=== PATIENT | female | born 1975 | race Caucasian/White ===

== ENCOUNTER 2025-07-18 08:52 | Emergency (ER) | payer OTHER, SELFPAY ==
[2025-07-18 09:08] VITALS: BP 111/66; PULSE 65; RESP 20; TEMP 36.4; O2SAT 100
[2025-07-18 09:19] LABS: EDSTREPNEGPOS1 Negative (Negative)
[2025-07-18 09:34] LABS: EDCOVIDSCREEN Negative (Negative); EDINFLUASCREEN Negative (Negative); EDINFLUBSCREEN Negative (Negative)
--- OUTSIDE RECORDS SUMMARY | 2025-07-18 09:35 | XMS_ITS | Patient Health Record ---
Author Organization [facility] Address [address] [place], [place] [id number] Care Team Providers Care Cabana Attendant Name Role Phone Anamika Cruz Primary Care Provider [phone] Allergies Allergen (clinical drug ingredient) Drug/Non Drug Allergy documented on EMR Reaction Allergy Type Onset Date Status Penicillin Unknown Drug Allergy Active Reason For Referral No Information Medications Medication SIG (Take, Route, Frequency, Duration) Notes Start Date End Date Status Topiramate 100 MG Tablet TAKE 2 TABLETS BY MOUTH EVERY DAY Oral; Duration: 30 08/15/2015 Active Sertraline HCl 100 MG Tablet TAKE 1&1/2 TABLET BY MOUTH EVERY DAY; Duration: 90 Active Pantoprazole Sodium 40 MG Tablet Delayed Release 1 tablet Orally Once a day for abd pain; Duration: 30 day(s) 08/02/2015 Active Ondansetron HCl 4 MG Tablet 1 tablet Orally every 4 hours as needed for nausea; Duration: 7 days 08/02/2015 Active Diflucan 150 MG Tablet 1 tablet Orally once; Duration: 1 dose 07/09/2015 Not-Taking/MI N Cefdinir 300 MG Capsule 1 capsule Orally every 12 hrs Not-Taking/MI N Nasonex 50 MCG/ACT Suspension 2 sprays in each nostril Nasally Once a day; Duration: 90 days Active Tretinoin 0.05 % Cream 1 application to affected area in the evening to face Externally Once a day Active Singulair 10 MG Tablet TAKE 1 TABLET BY MOUTH EVERY DAY IN THE EVENING; Duration: 90 Active Montelukast Sodium 10 MG Tablet take 1 tablet by mouth daily in the evening Orally DAILY; Duration: 90 days Active SUMAtriptan Succinate 100 MG Tablet 1 tablet as needed one time Orally Once a day; Duration: 90 days pt needs refill 12/22/2014 Active Social History Social History Drugs/Alcohol: Social Info Question Answer Notes Drugs Have you used drugs other than those for medical reasons in the past 12 months? No Problems Problem Type SNOMED Code ICD Code Onset Dates Problem Status W/U Status Risk Notes Problem Allergic rhinitis (50510138) Allergic rhinitis (J30.9) Active confirmed Problem Acne (46074848) Acne (L70.9) Active confirmed Problem migraine (disorder) (79677113) Migraines (G43.909) Active confirmed Plan Of Treatment No Information Insurance Providers Payer Name Payer Address Payer Phone Subscriber Number Group Number Insured Name Patient Relationship to Insured Coverage Start Date Coverage End Date [facility] [address] [place] [address] [id number] Bertha Hendrickson Self - patient is the insured 5 Medical (General) History Medical History History ICD Code Migraines G43.909 Acne L70.9 Allergic rhinitis J30.9
--- OUTSIDE RECORDS SUMMARY | 2025-07-18 09:35 | XMS_ITS | Patient Health Record ---
Author Organization [facility] Address [address] [place], [place] [address] Care Team Providers Care Casting Machine Operator Automatic Name Role Phone Eliceo Jimenes Unavailable [phone] Allergies Allergen (clinical drug ingredient) Drug/Non Drug Allergy documented on EMR Reaction Allergy Type Onset Date Status Penicillin Unknown Drug Allergy Active Reason For Referral No Information Medications Medication SIG (Take, Route, Frequency, Duration) Notes Start Date End Date Status Immitrex Active Topamax Active Plan Of Treatment No Information Insurance Providers Payer Name Payer Address Payer Phone Subscriber Number Group Number Insured Name Patient Relationship to Insured Coverage Start Date Coverage End Date [facility] [address] [place] [address] [id number] Monty Hendrickson Spouse - patient is the spouse of the insured Medical (General) History Medical History History ICD Code migraines Surgical History Surgery Date(Month/Year) sinus surgery
--- OUTSIDE RECORDS SUMMARY | 2025-07-18 09:35 | XMS_ITS | Patient Health Record ---
Author Organization [facility] Address [address] [facility] [place] [address] Care Team Providers Care Protective Services Social Worker Name Role Phone SPIKE LYMAN Primary Care Provider Unavailsandee e Carol Adams Unavailable [phone] JUAN C MILLER Unavailable Unavailable Allergies Allergen (clinical drug ingredient) Drug/Non Drug Allergy documented on EMR Reaction Allergy Type Onset Date Status amitriptyline Amitriptyline HCl suicidal thoughts Drug Allergy Active Penicillin Unknown Drug Allergy Active Reason For Referral No Information Medications Medication SIG (Take, Route, Frequency, Duration) Notes Start Date End Date Status Phenergan 25 mg tablet 1 tablet Oral 8 h ours as needed for nausea & PACHECO; Duration: 10 days Active Naproxen 500 mg Tablet 1 tablet as neede d 2 days prior to menstrual cycle Orally every 12 hrs; Duration: 15 days Active Ativan 1 MG Tablet as directed Orally T apurva 1 tablet 1 hr prior to MRI, may repeat upon arrival to scan; Duration: 1 dose(s) 02/13/2017 Active Topiramate 100 MG Tablet 1-2 TABS TWICE DAILY; Duration: 30 Active tiZANidine HCl 4 MG Tablet 1 tablet Oral ly prn with headache Active Zoloft 100 mg Tablet 1 tablet Orally Once a day Active Vitamin D 2000 UNIT Tablet 1 tablet Orally Once a day Active Gabapentin 100 mg Capsule 1-2 capsules O rally tid; Duration: 30 Active Medrol 4 mg Tablet as directed Orally a s directed; Duration: 6 Active Fish Oil 1200 MG Capsule 2 capsules Oral ly Once a day Active Magnesium 250 MG Tablet 1 tablet with fo od Orally Two times a day Active Imitrex 100 MG Tablet 1 tablet as needed Orally Twice a day; Duration: 30 days Active Medrol 4 mg Tablet Therapy Pack as directed Orally daily; Duration: 1 dose(s) 06/18/2017 Active Topamax 100 MG Tablet 1 tablet Orally Tw ice a day Active Social History Tobacco Use: Social History Observation Description Date Details (start date - stop date) Never Smoker NA - NA Social History Social History Social Info Question Answer Notes Smoking History Are you a: nonsmoker Additional Findings: Tobacco Non-User Current no n-smoker Drug Abuse History Have you ever been addicted to drug s? No Alcohol usage Did you have a drink containing alcohol in the past year? No Points 0 Interpretation Negative Additional Details Category Social Info Options Details Social History Work status no Daily caffeine intake Yes, 1-2 c ups per day Marital status Section Notes: Patient is RT handed. Patient is RT handed. Patient is RT handed. Patient is RT handed. Patient is RT handed. Patient is RT handed. Patient is RT handed. Patient is RT handed. Patient is RT handed. Patient is RT handed. Patient is RT handed. Patient is RT handed. Patient is RT handed. Patient is RT handed. Problems Problem Type SNOMED Code ICD Code Onset Dates Problem Status W/U Status Risk Notes Problem Chronic intractable migraine without aura (68378824874601 5) Chronic migraine without aura, intractable, without status migrainosus (G43.719) Active confirmed Problem Refractory migraine without aura (598478751) Intractable migraine without aura and without status migrainosus (G43.019) Active confirmed Problem Status migrainosus (379659459) Status migrainosus (G43.901) Active confirmed Problem Attention deficit disorder (30509641) ADD (attention deficit disorder) (F90.0) Active confirmed Problem Seizure (77575574) Seizures (R56.9) Active confirmed Problem Spasm (38184109) Spasm of muscle (M62.838) Active confirmed Problem Mood disorder (67798659) Mood disorder (F39) Active confirmed Problem Cervical spondylosis without myelopathy (006532038) Cervical spondylosis with radiculopathy (M47.22) Active confirmed Problem Migraine (18294744) Migraine (G43.909) Active confirmed Plan Of Treatment Pending Test Test Name Order Date MRI C-Spine WO Contrast 09/29/2016 Trigger Point Injection Cervical 016 Occipital Nerve Injection 09/29/2016 48 hour Ambulatory EEG 12/12/2015 Insurance Providers Payer Name Payer Address Payer Phone Subscriber Number Group Number Insured Name Patient Relationship to Insured Coverage Start Date Coverage End Date [facility] [address] [place] [address] [id number] PATEL CISNEROS Self - patient is the insured Medical (General) History Medical History History ICD Code Headaches Seizure Depression ADD Surgical History Surgery Date(Month/Year) [place] tooth removal Hospitalization History Reason Date(Month/Year[facility] Den[facility] ER or hospitalization since the l ast visit
--- OUTSIDE RECORDS SUMMARY | 2025-07-18 09:36 | XMS_ITS | Patient Health Record ---
Author Organization [facility] Physician Enedelia es Billing Info Address [address] [place] [address] Support Name Relationship Address Phone Bertha Pickett Guarantor Unknown Reason For Referral No Information Plan Of Treatment No Information Insurance Providers Payer Name Payer Address Payer Phone Subscriber Number Group Number Insured Name Patient Relationship to Insured Coverage Start Date Coverage End Date [employer] [address] [place], [place] [id number] [phone] [id number] Monty Pickett Spouse - patient is the spouse of the insured 4 4
--- OUTSIDE RECORDS SUMMARY | 2025-07-18 09:36 | XMS_ITS | Patient Health Record ---
Author Organization [facility] Billing Info Address [address] [place] [address] [place] [address] Care Team Providers Care Intellectual Property Counsel Name Role Phone REFUGIO LEXIE Primary Care Provider [phone] TASH, PATEL Unavailable [phone] Allergies Allergen (clinical drug ingredient) Drug/Non Drug Allergy documented on EMR Reaction Allergy Type Onset Date Status Penicillin Unknown Drug Allergy Active Reason For Referral No Information Medications Medication SIG (Take, Route, Frequency, Duration) Notes Start Date End Date Status Sumatriptan Succinate 100 MG TAKE 1 TAB AT LEAST 2 HOURS BETWEEN DOSES NEEDED FOR MIGRAINE. REPEAT IN 2 HOURS IF NO RELIEF 5 for 30 Active Celecoxib 200 MG 1 capsule with food Orally Once a day for 30 days 07/03/2023 Active Sertraline HCl 100 MG TAKE 1 AND 1/2 TAB LETS BY MOUTH ONCE DAILY for 90 Active Topiramate 100 MG TAKE [address] [facility] TWICE A DAY for 90 Active Nurtec 75 MG 1 tablet on the tong ue and allow to dissolve Orally Daily for 30 days 07/03/2023 Active Ondansetron 4 MG 1 tablet on the tong ue and allow to dissolve Orally TID prn for 30 days 09/25/2023 Active Tizanidine HCl 2 MG 1 tablet as needed O rally Three times a day PRN muscle spasms; WARNING: sedating 07/03/2023 Active Immunizations Vaccine Route Administration Date Status Comme nts TB SKIN TEST (PPD) ID Intradermal 09/13/2018 Administered TB SKIN TEST (PPD) ID Intradermal 03/01/2021 Administered Pt was notified to return within 48-72 hours, and told to return before 11:45 AM on the third day. TB SKIN TEST (PPD) ID Intradermal 07/31/2023 Administered [facility]: 10727-040-6 1 zFLU 4V (FLUZONE QUAD), 3 YRS+, NO PRES - ALL PAYORS IM Intramuscular 06/17/2018 Administered zFLU 4V (FLUARIX QUAD), 6 MO+, NO PRES - ALL PAYORS IM Intramuscular 07/19/2021 Administered zFLU 4V (FLUARIX QUAD), 6 MO+, NO PRES - ALL PAYORS IM Intramuscular 07/30/2023 Administered [id number] zFLU 4V (FLUZONE QUAD), 6MO+ (0.5 ML), NO PRES - ALL PAYORS IM Intramuscular 06/07/2020 Administered [facility] 74253-831-3 8 Social History Tobacco Use: Social History Observation Description Date Details (start date - stop date) Never Smoker NA - NA Tobacco Status: Question Answer Notes Patient is a never smoker Problems Problem Type SNOMED Code ICD Code Onset Dates Problem Status W/U Status Risk Notes Problem 866846501 Seasonal allergies (J30.2) Active confirmed Problem 616340852 Need for tuberculosis vaccination (Z23) Active confirmed Problem Recurrent sinusitis (797542951) Recurrent sinusitis (J32.9) Active confirmed Problem 1085241 Migraine with aura and without status migrainosus, not intractable (G43.109) Active confirmed Plan Of Treatment No Information Insurance Providers Payer Name Payer Address Payer Phone Subscriber Number Group Number Insured Name Patient Relationship to Insured Coverage Start Date Coverage End Date [facility] [address] [address] [place], [place] [id number] [phone] [id number] Patel Hendrickson Self - patient is the insured 8 Medical (General) History Surgical History Surgery Date(Month/Year) wisdom teeth removed
--- OUTSIDE RECORDS SUMMARY | 2025-07-18 09:36 | XMS_ITS | Patient Health Record ---
Author Organization [facility] Address [address] [place] [address] Care Team Providers Care Electronic Installer Name Role Phone Tiana Frank Unavailable [phone] Allergies Allergen (clinical drug ingredient) Drug/Non Drug Allergy documented on EMR Reaction Allergy Type Onset Date Status penicillin V Penicillin V Potassium Unknown Drug Allergy Active Reason For Referral No Information Medications Medication SIG (Take, Route, Frequency, Duration) Notes Start Date End Date Status Topamax 100 MG 1 tablet Orally Twic e a day Active Imitrex 100 MG 1 tablet as needed O rally Twice a day Active Ciclopirox Olamine 0.77 % 1 application to affected area Externally Twice a day; Duration: 30 days 02/09/2018 Active Social History Tobacco Use: Social History Observation Description Date Details (start date - stop date) Never Smoker NA - NA Tobacco Use/Smoking Question Answer Notes Are you a nonsmoker Alcohol Screen Question Answer Notes Did you have a drink containing alcohol in the p ast year? No Points 0 Interpretation Negative Problems Problem Type SNOMED Code ICD Code Onset Dates Problem Status W/U Status Risk Notes Problem Tinea unguium (553370118) Tinea unguium (B35.1) Active confirmed Plan Of Treatment No Information Insurance Providers Payer Name Payer Address Payer Phone Subscriber Number Group Number Insured Name Patient Relationship to Insured Coverage Start Date Coverage End Date [address] [place] [address] [phone] [id number] Bertha Pickett Self - patient is the insured Medical (General) History Medical History History ICD Code depression epilepsy headaches/migraines psychiatric conditions Surgical History Surgery Date(Month/Year) wisdom tooth extraction
--- OUTSIDE RECORDS SUMMARY | 2025-07-18 09:36 | XMS_ITS | Clinical Summary ---
Author Organization [facility] Address [address] [place] [address] Care Team Providers Care Poultry Offal Icer Name Role Phone Cornelius Turcios DO Primary Care Provider [phone] Allergies Active Allergy Reactions Criticality Noted Date Comments Penicillins 07/22/2020 Medications sertraline (ZOLOFT) 50 mg tablet Take 100 mg by mouth daily. Active topiramate (TOPAMAX) 50 MG tablet Take 100 mg by mouth 2 (two) times a day. Active SUMAtriptan (IMITREX) 100 MG tablet Take 100 mg by mouth as needed for migraine. After 2 hours, if symptoms persist, may repeat dose x 1. Max 2 doses in 24 hrs. Active cefdinir (OMNICEF) 300 MG capsuleIndicati ons:Acute non-recurrent frontal sinusitis Take 1 capsule (300 mg total) by mouth 2 (two) times a day. 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
--- NOTE | 2025-07-18 09:56 | ED.GENADULT ---
HPI - General Adult General Chief complaint: Upper Respiratory Infection Stated complaint: Sore throat Source: patient Mode of arrival: ambulatory Limitations: no limitations History of Present Illness HPI narrative: Patient presents for evaluation of sick symptoms for last 2 days. Symptoms include headache, sore throat, nausea, diarrhea, generalized body aches, and cough. No shortness of breath or vomiting. No recent sick contacts to her knowledge. She took aleve for her symptoms which seemed to help. She does not smoke. Related Data Home Medications ?Medication ?Instructions ?Recorded ?Confirmed ?Last Taken ?Type estradiol 0.5 mg tablet mg 07/18/25 Unknown History sertraline 100 mg tablet mg 07/18/25 Unknown History sumatriptan succinate 100 mg tablet mg PO 07/18/25 Unknown History terbinafine HCl 250 mg tablet mg 07/18/25 Unknown History topiramate 100 mg tablet mg 07/18/25 Unknown History Allergies Allergy/AdvReac Type Severity Reaction Status Date / Time Penicillins Allergy Mild Hives Verified 07/18/25 09:10 Review of Systems Review of Systems: CONSTITUTIONAL: Denies fever, chills, or sweats. EYES: Denies visual changes, redness, or discharge. ENT: Reports sinus congestion and sore throat. CARDIOVASCULAR: Denies chest pain, palpitations, or edema. RESPIRATORY: Reports cough. Denies SOB GASTROINTESTINAL: Reports nausea and diarrhea GENITOURINARY: Denies dysuria or hematuria. SKIN: Denies rash or itching. MUSCULOSKELETAL: Reports generalized body aches NEUROLOGIC: Reports headache. Denies numbness, dizziness, or weakness. PSYCHIATRIC: Denies anxiety or depression. [facility] Past Medical History Medical History Migraine Surgical History Surgical History No pertinent past surgical history Family History Family History Mother Family history non-contributory Social History Social History Smoking status: Never smoker Substance use: never Gender identity (if verbalized by the patient): Female Spiritual care concerns: No Exam Narrative: GENERAL: Well-appearing, well-nourished, and in no acute distress. HEAD: Normocephalic, atraumatic. EYES: PERRLA and EOMI. ENT: Nares clear, no rhinorrhea or epistaxis. Mucous membranes moist. Oropharynx without tonsillar hypertrophy exudate or other lesions however there is posterior pharyngeal erythema. Bilateral TMs pearly carrion nonbulging NECK: Supple. No adenopathy or masses. No carotid bruits or JVD CHEST: Clear to auscultation. No respiratory distress. No wheezes rales or rhonchi HEART: Regular rate and rhythm. No murmur heard. Normal peripheral pulses. ABDOMEN: Soft, nontender, nondistended, normal active bowel sounds. EXTREMITIES: Normal range of motion. No edema. SKIN: Warm, dry, no rash. NEURO: No focal deficits. Alert and oriented x3. PSYCH: Normal mood and affect. Course Course Emergency Course: this is a 50-year-old female who presented for evaluation of sick symptoms. COVID, influenza, strep were all negative. Will send throat culture. Increase hydration. [id number] agents for symptom management. Her exam is consistent with acute viral syndrome. Follow-up with primary provider. Go to the ER for worsening symptoms. Patient in agreement with plan of care. Level of Care: Express Care Visit Vital Signs Vital signs: Vital Signs Temperature 36.4 C 07/18/25 09:08 Pulse Rate 65 07/18/25 09:08 Respiratory Rate 20 07/18/25 09:08 Blood Pressure 111/66 07/18/25 09:08 Pulse Oximetry 100 07/18/25 09:08 Oxygen Delivery Room Air 07/18/25 09:08 Temperature 36.4 C 07/18/25 09:08 Pulse Rate 65 07/18/25 09:08 Respiratory Rate 20 07/18/25 09:08 Blood Pressure 111/66 07/18/25 09:08 Pulse Oximetry 100 07/18/25 09:08 Oxygen Delivery Room Air 07/18/25 09:08 Medical Decision Making Vital Signs Vital Signs: Vital Signs Temperature 36.4 C 07/18/25 09:08 Pulse Rate 65 07/18/25 09:08 Respiratory Rate 20 07/18/25 09:08 Blood Pressure 111/66 07/18/25 09:08 Pulse Oximetry 100 07/18/25 09:08 Oxygen Delivery Room Air 07/18/25 09:08 Temperature 36.4 C 07/18/25 09:08 Pulse Rate 65 07/18/25 09:08 Respiratory Rate 20 07/18/25 09:08 Blood Pressure 111/66 07/18/25 09:08 Pulse Oximetry 100 07/18/25 09:08 Oxygen Delivery Room Air 07/18/25 09:08 Lab Data Labs: Lab Results 07/18/25 07/18/25 Range/Units 09:17 09:33 POC Influenza A Ag Negative (Negative) POC Influenza B Ag Negative (Negative) POC SARS CoV-2 Ag Negative (Negative) POC Grp A Strep Screen Negative (Negative) Discharge Plan Discharge Clinical Impression: Acute viral syndrome Patient Disposition: Home Condition: Stable Instructions: Antibiotic Form, Viral Syndrome (ED) Additional Instructions: MAKE SURE TO STAY WELL HYDRATED CEPACOL LOZENGES SHOULD HELP SORE THROAT YOU MAY CONTINUE TO TAKE ALEVE FOR SORE THROAT AND BODY ACHES Patient Language: Austrian Prescriptions: No Action sumatriptan succinate 100 mg tablet PO sertraline 100 mg tablet terbinafine HCl 250 mg tablet estradiol 0.5 mg tablet topiramate 100 mg tablet Follow-up/Referrals: [place] MD [Physician, Family Practice] Stand Alone Forms: Work/School Release IP Time of Disposition: 09:39
== END 2025-07-18 09:41 | disposition home or self-care (01) ==
PROVIDERS: Emergency Provider Nurse Practitioner
DX: B34.9 Viral infection, unspecified (principal); Z79.899 Other long term (current) drug therapy; Z20.822 Contact with and (suspected) exposure to COVID-19
CPT/HCPCS: 87081; 87426; 87804; 87880; 99213; G0463